=== PATIENT | female | born 1995 | race Caucasian/White ===

== ENCOUNTER 2017-05-25 19:22 | Emergency (ER) | payer BC ==
[2017-05-25] MEDS ORDERED: Promethazine HCl 25 MG/ML VIAL ONE (19:40)
[2017-05-25] MEDS ORDERED: diphenhydrAMINE 50 MG/ML VIAL ONE (19:40)
[2017-05-25] MEDS ORDERED: Sodium Chloride 0.9% 1,000 ML ONE (19:40)
[2017-05-25] MEDS ORDERED: Ketorolac Tromethamine 30 MG/ML VIAL ONE (19:40)
== END 2017-05-25 20:58 | disposition home or self-care (01) ==
LOC: NAV ERS 19:22
DX: R51 Headache (principal); F17.210 Nicotine dependence, cigarettes, uncomplicated
CPT/HCPCS: 96365; 96375; 99406; J1200; J1885; J2550; J7050

== ENCOUNTER 2017-07-13 09:13 | Emergency (ER) | payer BC ==
[2017-07-13] MEDS ORDERED: SUMAtriptan Succinate 6 MG/0.5 ML VIAL ONE (09:39)
[2017-07-13] MEDS ORDERED: Metoclopramide HCl 10 MG/2 ML VIAL ONE (09:39)
[2017-07-13] MEDS ORDERED: Sodium Chloride 0.9% 1,000 ML ONE (09:40)
[2017-07-13] MEDS ORDERED: Sodium Chloride 0.9% 100 ML ONE (09:40)
== END 2017-07-13 11:12 | disposition home or self-care (01) ==
LOC: NAV ERS 09:13
DX: G43.909 Migraine, unspecified, not intractable, without status migrainosus (principal); F17.210 Nicotine dependence, cigarettes, uncomplicated; Z79.899 Other long term (current) drug therapy
CPT/HCPCS: 96361; 96372; 96374; J2765; J3030; J7050